=== PATIENT | male | born 1975 | race Caucasian/White ===

== ENCOUNTER 2018-06-19 21:37 | Emergency (ER) | payer MEDICAID ==
[2018-06-20] MEDS: IBUPROFEN 800 MG TAB PO (01:04)
== END 2018-06-20 01:12 | disposition home or self-care (01) ==
LOC: FTE 06-20 01:12
DX: J40 Bronchitis, not specified as acute or chronic (principal); I10 Essential (primary) hypertension
CPT/HCPCS: 71046; 99283-25